=== PATIENT | female | born 1945 | race Caucasian/White ===

== ENCOUNTER 2025-01-01 13:34 | Emergency (ER) | payer OTHER ==
[2025-01-01 14:44] LABS: Absolute Lymphocytes (CBC) 2.1 K/uL (0.7-4.9); Hematocrit 37.7 % (36.0-45.0); Hemoglobin 12.9 g/dL (12.0-15.0); MCH 31.3 pg (27.0-35.0); MCHC 34.1 g/dL (32.0-36.0); MCV 91.8 fL (80-100); MPV 7.0 fL (7.6-11.3); Nucleated RBC Absolute Count 0.0 (0-0); Nucleated Red Blood Cells % 0.1 % (0-0); RBC Red Blood Cell Count 4.11 M/uL (3.86-4.86); White Blood Count 9.50 thou/uL (4.3-10.9)
[2025-01-01] MEDS ORDERED: METOCLOPRAMIDE 10 MG/2mL INJ ONE (14:47)
[2025-01-01] MEDS ORDERED: NA CHLORIDE 0.9% 1,000 ML ONE (14:47)
[2025-01-01 14:53] LABS: PT Prothrombin Time 11.9 SECONDS (10-13.0); PTT, Activated Partial Thromb 30.0 SECONDS (27.2-37.4); Protime INR 1.05
[2025-01-01 15:06] LABS: ALT/SGPT 25.0 U/L (13-56); AST/SGOT 18.0 U/L (15-37); Albumin 3.8 g/dL (3.4-5.0); Albumin/Globulin Ratio 1.2 (1.1-1.8); Alkaline Phosphatase 78.0 U/L (45-117); Anion Gap 9.5 mEq/L (5.0-15.0); BUN Blood Urea Nitrogen 18.0 mg/dL (7-18); Globulin 3.2 g/dL (2.3-3.5); Glucose Level 96.0 mg/dL (74-106); NT PRO-BNP 282.0 pg/mL (<450); Potassium 4.5 mEq/L (3.5-5.1); Troponin High Sensitivity 4.0 pg/mL (<58.9)
--- NOTE | 2025-01-01 15:16 | RAD REPORT ---
EXAM: Right upper quadrant ultrasound. CLINICAL HISTORY: gallbladder, N/V COMPARISON: None. FINDINGS: Gallbladder: Normal. Bile ducts: No intrahepatic or extrahepatic biliary dilatation. Common bile duct measures 3 mm. Limited imaging of the liver shows no concerning finding. IMPRESSION: Unremarkable exam.
--- NOTE | 2025-01-01 15:16 | RAD REPORT ---
EXAMINATION: ONE VIEW CHEST XR CLINICAL INDICATION: weakness TECHNIQUE: Frontal chest projection is submitted. Examination is limited by patient positioning and t echnique. COMPARISON: 12/24/2024 FINDINGS: The lungs are diffusely emphysematous but grossly clear. The heart is upper limit of normal in size. No displaced fractures identified. Calcified breast implants bilaterally. IMPRESSION: COPD without an acute process suspected.
[2025-01-01 15:58] LABS: Urine Microscopic Reflex YN NO UMIC
--- NOTE | 2025-01-01 16:59 | RAD REPORT ---
EXAMINATION: CAROTID DUPLEX ULTRASOUND CLINICAL INDICATION: DIZZINESS TECHNIQUE: Real-time grayscale, color flow and spectral Doppler sonographic images were obtained of t he extracranial carotid system using a linear transducer. COMPARISON: No prior exam. FINDINGS: RIGHT: Common carotid artery: 83 cm/s Internal carotid artery: 84 cm/s External carotid artery: 96 cm/s Right ICA/CCA ratio: 1.0 Plaque: No significant plaquing seen. Vertebral artery Antegrade LEFT: Common carotid artery: 84 cm/s Internal carotid artery: 80 cm/s External carotid artery: 54 cm/s Left ICA/CCA ratio: 0.9 Plaque: No significant plaquing seen. Vertebral artery Antegrade IMPRESSION: No hemodynamically significant stenosis (greater than 50%) within the extracranial internal carotid a rteries. The degrees of stenosis, if any, are quantified according to the consensus statement of the Society o f Radiologists in Ultrasound (SRUS). Please refer to Brian E, Chavo C, Rome G et al. Carotid Artery Stenosis: Gallegos-Scale and Doppler US Diagnosis--Society of Radiologists in Ultrasound Consensus Conference. Radiology. 2003;229(2):340-6.
--- NOTE | 2025-01-01 17:02 | ER ---
Nurse's Notes [facility] Name: Keerthi Yoon Age: 79 yrs Sex: Female : 1945 Arrival Date: 01/01/2025 Time: 13:34 Bed 18 Private MD: Diagnosis: dizziness Presentation: 01/01 13:57 Chief complaint: Patient states: 30 DAYS DIZZINESS AND NAUSEA. Coronavirus screen: At bp this time, the client does not indicate any symptoms associated with coronavirus-19. Ebola Screen: No symptoms or risks identified at this time. Initial Sepsis Screen: Does the patient meet any 2 criteria? No. Patient's initial sepsis screen is negative. Does the patient have a suspected source of infection? No. Patient's initial sepsis screen is negative. Risk Assessment: Do you want to hurt yourself or someone else? Patient reports no desire to harm self or others. Onset of symptoms is unknown. 13:57 Method Of Arrival: Ambulatory bp 13:57 Acuity: CARLOS 3 bp Historical: - Allergies: 13:54 Niacin; bp - PMHx: 14:20 None; aa5 - PSHx: 13:54 Appendectomy; Tonsillectomy; PARTIAL HYSTERECTOMY; bp - Immunization history:: Adult Immunizations up to date. - Infectious Disease History:: Denies. - Social history:: Smoking status: Patient reports the use of cigarette tobacco products, unknown amount. Screenin:20 [facility] ED Fall Risk Assessment (Adult) History of falling in the last 3 months, me1 including since admission No falls in past 3 months (0 pts) Confusion or Disorientation No (0 pts) Intoxicated or Sedated No (0 pts) Impaired Gait No (0 pts) Mobility Assist Device Used No (0 pt) Altered Elimination No (0 pt) Score/Fall Risk Level 0 - 2 = Low Risk Maintained a safe environment, Provided non-skid footwear, Hourly rounding (assess needs \T\ fall precautionary measures) done. Abuse screen: Denies threats or abuse. Nutritional screening: No deficits noted. Tuberculosis screening: No symptoms or risk factors identified. Assessment: 14:20 General: Appears in no apparent distress. well groomed, well developed, well nourished, me1 Behavior is calm, cooperative, appropriate for age, Reports dizziness and nausea that started a month ago. Pain: Denies pain. Neuro: Level of Consciousness is awake, alert, obeys commands, Oriented to person, place, time, situation, Appropriate for age Reports dizziness. Cardiovascular: Patient's skin is warm and dry. Respiratory: Airway is patent Respiratory effort is even, unlabored, Respiratory pattern is regular, symmetrical. GI: Abdomen is non-distended, Reports nausea. : No signs and/or symptoms were reported regarding the genitourinary system. EENT: No signs and/or symptoms were reported regarding the EENT system. Derm: Skin is intact, is healthy with good turgor, Skin is normal. Musculoskeletal: No signs and/or symptoms reported regarding the musculoskeletal system. Vital Signs: 13:57 BP 127 / 84; Pulse 80; Resp 16; Temp 98; Pulse Ox 96% ; bp 15:00 BP 129 / 73; Pulse 64; Resp 14; Pulse Ox 100% ; me1 16:00 BP 142 / 76; Pulse 64; Resp 16; Pulse Ox 99% ; me1 17:00 BP 132 / 75; Pulse 66; Resp 17; Temp 98.1; Pulse Ox 100% ; me1 ED Course: 13:39 Patient arrived in ED. gl 13:50 Derrick Christian MD is Attending Physician. jr11 13:54 Arm band placed on. bp 13:57 Triage completed. bp 14:20 Patient has correct armband on for positive identification. Bed in low position. Call me1 light in reach. Side rails up X2. Provided Education on: POC. Verbalized understanding.. Client placed on continuous cardiac and pulse oximetry monitoring. NIBP monitoring applied. residential monitor on. Pulse ox on. NIBP on. 14:20 First set of blood cultures drawn by me. aa5 14:20 No provider procedures requiring assistance completed. me1 14:31 Initial lab(s) drawn, by me, sent to lab. Second set of blood cultures drawn by me. aa5 14:37 Inserted saline lock: 20 gauge in right forearm, using aseptic technique. Flushed with aa5 10 mL NS. 14:42 Lynne Norris, RN is Primary Nurse. me1 15:03 US Abdomen Limited In Process Unspecified. EDMS 15:06 Chest Single View XRAY In Process Unspecified. EDMS 15:11 EKG done, by ED staff, reviewed by Derrick Christian MD. me1 16:25 Carotid Artery Bilateral US In Process Unspecified. EDMS 17:41 IV discontinued, intact, bleeding controlled, No redness/swelling at site. Pressure me1 dressing applied. Administered Medications: 15:06 Drug: NS 0.9% IV 1000 ml IV at 1000 ml once; to be given as a bolus over 60 minutes me1 Route: IV; Rate: 1000 ml; Site: right forearm; 17:42 Follow up: Response: No adverse reaction; IV Status: Completed infusion; IV Intake: me1 1000ml 15:06 Drug: metoCLOPramide IVP 5 mg IVP once; over 1 to 2 minutes Route: IVP; Site: left me1 forearm; 16:02 Follow up: Response: No adverse reaction; Nausea is decreased me1 Medication: 14:20 VIS not applicable for this client. me1 Intake: 17:42 IV: 1000ml; Total: 1000ml. me1 Outcome: 17:01 Discharge ordered by MD. luke 17:41 Discharged to home ambulatory, with family, me1 17:41 Condition: stable 17:41 Discharge instructions given to patient, family, Instructed on discharge instructions, follow up and referral plans. medication usage, Demonstrated understanding of instructions, follow-up care, medications, Prescriptions given X 2, 17:42 Patient left the ED. me1 Signatures: Dispatcher [employer] [facility] Susan Brown, RN RN aa5 Brandon Bah RN RN Derrick Choudhary MD MD jr11 Lynne Norris RN RN me1 Trice Blanco, Reg Reg gl
--- NOTE | 2025-01-01 17:02 | EDPHYS ---
Physician Documentation [facility] Name: Keerthi Yoon Age: 79 yrs Sex: Female : 1945 Arrival Date: 01/01/2025 Time: 13:34 Bed 18 Private MD: ED Physician Derrick Christian HPI: 01/01 14:46 Chief Complaint: Nausea and dizziness for 30 days. History of Present Illness: The jr11 patient reports having been sick for 30 days, with worsening nausea every day. The patient feels dizzy and has vomited a few times this morning, with similar episodes occurring in the past week to week and a half. The nausea varies in intensity daily, with today being particularly terrible. The patient recalls not being prescribed any medication for nausea previously but received some medication via IV during a past visit. There's no associated pain. Discussions with Dr. Walton have been focused on the possibility of a gallbladder issue, although this was not initially suspected. The patient reports no radiation, and electrolytes and protein levels have been monitored. The patient has experienced weakness but no cough or fever. ROS otherwise negative. Review of Systems: - Nausea: Positive - Dizziness: Positive - Vomiting: Positive - Pain: Negative - Cough: Negative - Fever: Negative - ROS otherwise negative . Historical: - Allergies: 13:54 Niacin; bp - PMHx: 14:20 None; aa5 - PSHx: 13:54 Appendectomy; Tonsillectomy; PARTIAL HYSTERECTOMY; bp - Immunization history:: Adult Immunizations up to date. - Infectious Disease History:: Denies. - Social history:: Smoking status: Patient reports the use of cigarette tobacco products, unknown amount. Exam: 14:46 Constitutional: This is a well developed, well nourished patient who is awake, alert, jr11 and in no acute distress. Head/Face: Normocephalic, atraumatic. Eyes: Extra-ocular motions intact. Lids and lashes normal. Conjunctiva and sclera are non-icteric and not injected. Cornea within normal limits. Periorbital areas with no swelling, redness, or edema. ENT: Nares patent. No nasal discharge, no septal abnormalities noted. Oropharynx with no redness, swelling, or masses, exudates, or evidence of obstruction, uvula midline. Mucous membranes moist. Neck: Trachea midline, no thyromegaly or masses palpated, and no cervical lymphadenopathy. Supple, full range of motion without nuchal rigidity, or vertebral point tenderness. No Meningismus. Chest/axilla: Normal chest wall appearance and motion. Nontender with no deformity. No lesions are appreciated. Cardiovascular: Regular rate and rhythm with a normal S1 and S2. No gallops, murmurs, or rubs. Normal PMI, no JVD. No pulse deficits. Respiratory: Lungs have equal breath sounds bilaterally, clear to auscultation and percussion. No rales, rhonchi or wheezes noted. No increased work of breathing, no retractions or nasal flaring. Abdomen/GI: Soft, non-tender, with normal bowel sounds. No distension or tympany. No guarding or rebound. No evidence of tenderness throughout. Back: No spinal tenderness. No costovertebral tenderness. Full range of motion. Skin: Warm, dry with normal turgor. Normal color with no rashes, no lesions, and no evidence of cellulitis. MS/ Extremity: Pulses equal, no cyanosis. Neurovascular intact. Full, normal range of motion. Neuro: Awake and alert, GCS 15, oriented to person, place, time, and situation. No gross motor or sensory deficits. Vital Signs: 13:57 BP 127 / 84; Pulse 80; Resp 16; Temp 98; Pulse Ox 96% ; bp 15:00 BP 129 / 73; Pulse 64; Resp 14; Pulse Ox 100% ; me1 16:00 BP 142 / 76; Pulse 64; Resp 16; Pulse Ox 99% ; me1 17:00 BP 132 / 75; Pulse 66; Resp 17; Temp 98.1; Pulse Ox 100% ; me1 MDM: 14:10 Medical Screening Exam initiated jr11 14:46 Differential diagnosis: Medical Decision Makin. Gallbladder Dysfunction: Possible jr11 given the symptoms and Dr. Walton's focus, but less likely without pain. 2. Viral Gastroenteritis: Less likely given the duration of symptoms. 3. Sepsis: Unlikely given the lack of pain and stable vital signs, but needs to be ruled out due to past family history. 4. Electrolyte Imbalance: Possible due to nausea and vomiting, needs to be monitored. Plan: - Conduct a gallbladder study. - Monitor electrolytes and protein levels. - Administer medication for nausea as needed. - Discuss findings with Dr. Walton for further evaluation and management. - Reassess symptoms and adjust the treatment plan accordingly. . 15:43 ED course: EKG interpreted by me shows normal sinus rhythm, left axis, normal jr intervals, no acute ST changes, poor anterior R wave progression.. 17:00 ED course: Carodid US to my read no significant stenosis. Considered admission, spoke [facility] to Dr Walton, comfortable continuing work up as OP. . 01/01 14:12 Order name: BNP; Complete Time: 15:29 [facility] 01/01 14:12 Order name: Blood Culture Adult (2) [facility] 01/01 14:12 Order name: CBC with Diff; Complete Time: 15:29 [facility] 01/01 14:12 Order name: CMP; Complete Time: 15: [facility] 01/01 14:12 Order name: Lactate w/ 2H reflex if indic.; Complete Time: 15: [facility] 01/01 14:12 Order name: Protime (+inr); Complete Time: 15:29 [facility] 01/01 14:12 Order name: Ptt, Activated; Complete Time: 15: [facility] 01/01 14:12 Order name: Troponin HS; Complete Time: 15:29 [facility] 01/01 14:12 Order name: UA Rfx Gigi Cult if indicated; Complete Time: 16:09 [facility] 01/01 14:12 Order name: Chest Single View XRAY; Complete Time: 15: [facility] 01/01 14:12 Order name: US Abdomen Limited; Complete Time: 15:29 [facility] 01/01 15:39 Order name: Carotid Artery Bilateral US; Complete Time: 17:00 [facility] 01/01 14:12 Order name: EKG; Complete Time: 14:12 [facility] 01/01 14:12 Order name: Accucheck; Complete Time: 14:42 [facility] 01/01 14:12 Order name: Cardiac monitoring; Complete Time: 15:06 [facility] 01/01 14:12 Order name: EKG - Nurse/Tech; Complete Time: 15: [facility] 01/01 14:12 Order name: IV Saline Lock - Large Bore; Complete Time: 14:37 [facility] 01/01 14:12 Order name: Labs collected and sent; Complete Time: 14:37 [facility] 01/01 14:12 Order name: O2 Per Protocol; Complete Time: 14:37 [facility] 01/01 14:12 Order name: O2 Sat Monitoring; Complete Time: 14:37 jr11 01/01 14:12 Order name: Vital Signs; Complete Time: 14:37 Administered Medications: 15:06 Drug: NS 0.9% IV 1000 ml IV at 1000 ml once; to be given as a bolus over 60 minutes me1 Route: IV; Rate: 1000 ml; Site: right forearm; 17:42 Follow up: Response: No adverse reaction; IV Status: Completed infusion; IV Intake: me1 1000ml 15:06 Drug: metoCLOPramide IVP 5 mg IVP once; over 1 to 2 minutes Route: IVP; Site: left me1 forearm; 16:02 Follow up: Response: No adverse reaction; Nausea is decreased me1 Disposition Summary: 01/01/25 17:01 Discharge Ordered Notes: Location: Home [facility] Condition: Stable [facility] Diagnosis - dizziness jr Discharge Instructions: - Discharge Summary Sheet [facility] - Dizziness [facility] Forms: - Medication Reconciliation Form 11 - Antibiotic Education 11 - Prescription Opioid Use [facility] - Patient Portal Instructions [facility] - Leadership Thank You Letter [facility] Prescriptions: - Protonix 40 mg Oral Tablet - take 1 tablet ORAL route once daily; 30 tablet; Refills: 0, Product Selection [facility] Permitted - Reglan 10 mg Oral tablet - take 1 tablet ORAL route every 6 hours take 30 minutes before meals and at [facility] bedtime; 20 tablet; Refills: 0, Product Selection Permitted Signatures: Dispatcher [employer] Susan Loya RN RN aa5 Brandon Bah RN RN bp Rosillo, Jose, MD MD 11 Lynne Norris RN RN me1
[2025-01-01 17:56] VITALS: BP 132/75; TEMP 98.1; O2SAT 100
== END 2025-01-01 17:42 | disposition home or self-care (01) ==
LOC: ER 13:34
DX: R42 Dizziness and giddiness (principal); R11.0 Nausea; Z72.0 Tobacco use
CPT/HCPCS: 96361; 93005; 87040 ×2; 85025; 36415; 85610; 83605; 85730; 81003; 84484; 80053; 83880; 71045; 93880; 76705; 96374; 99285; J2765; J7030